=== PATIENT | male | born 1985 | race Caucasian/White ===

== ENCOUNTER → 2017-11-12 | Outpatient (CLI) | payer OTHER ==
[~2017-11-12] MED LIST: Norco 5-325 Ta1 EACH PO; PENVK500 PO
[2017-11-12 16:37] LABS: BASOPHILS ABSOLUTE AUTO 0.04 K/mm3 (0.00-0.23); BASOPHILS PERCENT AUTO 1 % (0-2); EOSINOPHILS ABSOLUTE AUTO 0.14 K/mm3 (0.00-0.68); EOSINOPHILS PERCENT AUTO 2 % (0-6); Hematocrit 45.2 % (37.0-53.0); IMMATURE GRAN ABSOLUTE AUTO 0.02 K/mm3 (0.00-0.10); IMMATURE GRAN PERCENT AUTO 0 % (0-1); LYMPHOCYTES ABSOLUTE AUTO 3.02 K/mm3 (0.84-5.20); LYMPHOCYTES PERCENT AUTO 34 % (21-46); MONOCYTES ABSOLUTE AUTO 0.55 K/mm3 (0.16-1.47); MONOCYTES PERCENT AUTO 6 % (4-13); Mean Corpuscular HGB 31.9 pg (26.0-34.0); Mean Corpuscular HGB Conc 35.4 g/dL (31.5-36.5); Mean Corpuscular Volume 90 fL (80-100); Mean Platelet Volume 11.8 fL (9.1-12.4); NEUTROPHILS ABSOLUTE AUTO 5.02 K/mm3 (1.96-9.15); NEUTROPHILS PERCENT AUTO 57 % (41-73); Platelet Count 243 K/mm3 (150-400); RDW Coefficient Variation 12.6 % (11.7-14.2); RDW Standard Deviation 40.8 fL (35.1-46.3); Red Blood Cell Count 5.02 M/mm3 (4.30-5.90); White Blood Cell Count 8.79 K/mm3 (4.00-11.30)
[2017-11-12 16:47] LABS: Alanine Aminotransfer (ALT/SGP 46 U/L (12-78); Albumin, Blood 4.6 g/dL (3.4-5.0); Albumin/Globulin Ratio 1.2 (0.8-1.8); Alk Phos 106 U/L (40-126); Anion Gap 8 mmol/L (6-16); Aspartate Aminotrans (AST/SGOT 24 U/L (12-37); Bilirubin, Total 0.2 mg/dL (0.1-1.0); Blood Urea Nitrogen 17 mg/dL (8-24); Bun/Creatinine Ratio 14.7 (12.0-20.0); CO2, Blood 28 mmol/L (21-32); Calcium, Blood 9.8 mg/dL (8.5-10.1); Chloride, Blood 104 mmol/L (98-108); Creatinine, Blood 1.16 mg/dL (0.60-1.20); Globulin, Blood 3.8 g/dL (2.2-4.0); Glomerular Filtration Rate >60 (60-); Glucose, Blood 96 mg/dL (70-99); Potassium, Blood 4.1 mmol/L (3.5-5.5); Sodium, Blood 140 mmol/L (136-145); Total Protein, Blood 8.4 g/dL (6.4-8.2)
== END | disposition home or self-care (01) ==
LOC: LAB EV 16:32
PROVIDERS: Physician Assistant Medical
DX: K62.5 Hemorrhage of anus and rectum (principal)
CPT/HCPCS: 80053; 85025

== ENCOUNTER 2019-02-14 12:07 | Emergency (ER) | payer OTHER ==
[~2019-02-14] VITALS: Ht 182.9 cm; Wt 92.1 kg
[2019-02-14] MEDS ORDERED: Cleocin HCl300 MG PO (12:35)
[2019-02-14] MEDS ORDERED: Norco 5-325 Ta1 EACH PO (12:35)
== END 2019-02-14 12:45 | disposition home or self-care (01) ==
LOC: ER 12:07
DX: K08.89 Other specified disorders of teeth and supporting structures (principal); Z91.030 Bee allergy status; F17.200 Nicotine dependence, unspecified, uncomplicated
CPT/HCPCS: 99282

== ENCOUNTER 2019-06-22 21:31 | Emergency (ER) | payer OTHER ==
[~2019-06-22] VITALS: Ht 182.9 cm; Wt 95.2 kg
[~2019-06-22 21:31] MED LIST changes: +Cleocin HCl300 MG PO
[2019-06-22 22:45] LABS: Source, Urine Clean Catch
[2019-06-22 22:50] LABS: Bilirubin, Urine Neg (Neg); Blood, Urine Neg (Neg); Glucose Qualitative, Urine Neg (Neg); Ketones, Urine Neg (Neg); Leukocyte Esterase, Urine Neg (Neg); Nitrite, Urine Neg (Neg); Protein, Urine Neg (Neg); Urobilinogen, Urine NORM (Normal)
[2019-06-22 22:54] LABS: Appearance, Urine Clear (Clear); Color, Urine Yellow (P-Yellow)
[2019-06-22] MEDS ORDERED: CYCL10 PO (23:17)
== END 2019-06-22 23:25 | disposition home or self-care (01) ==
LOC: ER 21:31
PROVIDERS: Physician Assistant
DX: M62.830 Muscle spasm of back (principal); F17.200 Nicotine dependence, unspecified, uncomplicated; Z91.030 Bee allergy status; Z88.0 Allergy status to penicillin
CPT/HCPCS: 81003; 96372; 99283-25; A9270; J1885

== ENCOUNTER 2019-09-26 08:32 | Inpatient (IN) | payer OTHER ==
[~2019-09-26] VITALS: Ht 182.9 cm; Wt 84.6 kg
[~2019-09-26 08:32] MED LIST changes: +CYCL10 PO
[2019-09-26 09:40] LABS: BASOPHILS ABSOLUTE AUTO 0.04 K/mm3 (0.00-0.23); BASOPHILS PERCENT AUTO 0 % (0-2); EOSINOPHILS ABSOLUTE AUTO 0.02 K/mm3 (0.00-0.68); EOSINOPHILS PERCENT AUTO 0 % (0-6); Hematocrit 49.6 % (37.0-53.0); Hemoglobin 16.7 g/dL (13.5-17.5); IMMATURE GRAN ABSOLUTE AUTO 0.04 K/mm3 (0.00-0.10); IMMATURE GRAN PERCENT AUTO 0 % (0-1); LYMPHOCYTES ABSOLUTE AUTO 2.23 K/mm3 (0.84-5.20); LYMPHOCYTES PERCENT AUTO 19 % (21-46); MONOCYTES ABSOLUTE AUTO 0.61 K/mm3 (0.16-1.47); MONOCYTES PERCENT AUTO 5 % (4-13); Mean Corpuscular HGB 30.8 pg (26.0-34.0); Mean Corpuscular HGB Conc 33.7 g/dL (31.5-36.5); Mean Corpuscular Volume 92 fL (80-100); Mean Platelet Volume 11.6 fL (9.1-12.4); NEUTROPHILS PERCENT AUTO 75 % (41-73); Platelet Count 281 K/mm3 (150-400); RDW Coefficient Variation 12.8 % (11.7-14.2); RDW Standard Deviation 42.5 fL (35.1-46.3); Red Blood Cell Count 5.42 M/mm3 (4.30-5.90); White Blood Cell Count 11.94 K/mm3 (4.00-11.30)
[2019-09-26 09:46] LABS: Ethanol (Alcohol), Blood, Med <3 mg/dL; Salicylate 3.5 mg/dL (2.8-20.0)
[2019-09-26 09:47] LABS: Alanine Aminotransfer (ALT/SGP 45 U/L (12-78); Albumin, Blood 4.8 g/dL (3.4-5.0); Albumin/Globulin Ratio 1.4 (0.8-1.8); Alk Phos 92 U/L (50-136); Anion Gap 9 mmol/L (6-16); Aspartate Aminotrans (AST/SGOT 26 U/L (12-37); Bilirubin, Total 0.4 mg/dL (0.1-1.0); Blood Urea Nitrogen 9 mg/dL (8-24); Bun/Creatinine Ratio 7.7 (12.0-20.0); CO2, Blood 19 mmol/L (21-32); Calcium, Blood 9.1 mg/dL (8.5-10.1); Chloride, Blood 110 mmol/L (98-108); Creatinine, Blood 1.17 mg/dL (0.60-1.20); Free Thyroxine 1.61 ng/dL (0.70-1.60); Globulin, Blood 3.5 g/dL (2.2-4.0); Glomerular Filtration Rate >60 (60-); Glucose, Blood 134 mg/dL (70-99); Potassium, Blood 3.9 mmol/L (3.5-5.5); Sodium, Blood 138 mmol/L (136-145); Total Protein, Blood 8.3 g/dL (6.4-8.2)
[2019-09-26 09:52] LABS: Acetaminophen, Random 115.3 ug/mL (10.0-30.0)
[2019-09-26 11:30] LABS: International Normalized Ratio 0.99; Prothrombin Time Results 10.6 Sec (9.7-11.5)
[2019-09-26 11:42] LABS: Base Excess Venous -7.5 mmol/L; Bicarbonate Venous 19.1 mmol/L (24.0-30.0); PO2 Venous 88.4 mmHg (38-42); pH Blood Venous 7.32 (7.34-7.37)
--- NOTE | 2019-09-26 14:00 | NUR ---
PT ARRIVED FROM ED TO ICU 3. PT IS A&OX4 FOLLOWING COMMANDS. N/V THAT PT WAS HAVING DOWN IN ED IS REPORTED TO BE IMPROVING, NO C/O ABD PAIN AT THIS TIME. PT IS SBA TRANSFERRING/AMBULATING. MONITOR SHOWS PT TO BE IN SINUS RHYTHM. VSS, SPO2>92% ON RA, LUNG SOUNDS ARE CLEAR. ACETYLCYSTEINE BAG #2 CONTINUED FROM ED. HIVES RASH FROM ZOFRAN ON LEFT ARM, NOTED TO BE CLEARING.
--- NOTE | 2019-09-26 14:59 | NUR ---
TALKED WITH VANESSA FROM [facility]. UPDATED ON CURRENT LAB RESULTS, EKG, VITALS. CONFIRMED ORDERED LABS/EKG PER RECOMMENDED GUIDELINES. [facility] WILL CALL BACK OUT FOR FOLLOW UP LAB RESULTS.
[2019-09-26 16:39] LABS: U Amphetamine Screen Not Detected; U Barbituate Screen Not Detected; U Benzodiazapine Screen Not Detected; U Buprenorphine Screen Not Detected; U Cannabinoids Screen Not Detected; U Cocaine Screen Not Detected; U Methadone Screen Not Detected; U Methamphetamine Screen Not Detected; U Opiates Screen Not Detected; U Oxycodone Screen Not Detected; U Phencyclidine Screen Not Detected; U Propoxyphene Screen Not Detected
[2019-09-26 17:28] LABS: Alanine Aminotransfer (ALT/SGP 52 U/L (12-78); Albumin, Blood 4.2 g/dL (3.4-5.0); Albumin/Globulin Ratio 1.2 (0.8-1.8); Alk Phos 85 U/L (50-136); Anion Gap 9 mmol/L (6-16); Aspartate Aminotrans (AST/SGOT 22 U/L (12-37); Bilirubin, Total 0.5 mg/dL (0.1-1.0); Blood Urea Nitrogen 11 mg/dL (8-24); Bun/Creatinine Ratio 10.3 (12.0-20.0); CO2, Blood 20 mmol/L (21-32); Chloride, Blood 111 mmol/L (98-108); Creatinine, Blood 1.07 mg/dL (0.60-1.20); Globulin, Blood 3.5 g/dL (2.2-4.0); Glomerular Filtration Rate >60 (60-); Glucose, Blood 130 mg/dL (70-99); Potassium, Blood 3.9 mmol/L (3.5-5.5); Sodium, Blood 140 mmol/L (136-145); Total Protein, Blood 7.7 g/dL (6.4-8.2)
[2019-09-26 17:36] LABS: Salicylate 2.2 mg/dL (2.8-20.0)
--- NOTE | 2019-09-26 18:21 | NUR ---
SHIFT SUMMARY PT HAS SLEPT OFF AND ON SINCE ARRIVAL TO UNIT AND HIS INTERACTION WITH STAFF HAS IMPROVED, WHERE HE'LL OCCASSIONALLY LAUGH. PT STILL DECLINING TO DISCUSS EVENTS/REASONS LEADING UP TO SUICIDE ATTEMPT. ACETYLCYSTEINE INFUSION CONTINUES AND PT IS NOW ON BAG #3 PER ORDERS. TYLENOL LEVEL REDRAW HAS IMPROVED. MONITOR SHOWS PT TO BE IN A SINUS RHYTHM RATES IN THE 70'S. REPEAT EKGS HAVE SHOWN IMPROVEMENT IN QRS, WITH MOST RECENT MEASUREMENT 108ms. VITALS REMAIN STABLE. PT HAS HAD NO MORE NAUSE/VOMITING SINCE ARRIVING FROM ER AND HAS TOLERATED A CLEAR LIQUID DIET. ROOM RECHECKED AND ANYTHING NOT NEEDED WAS REMOVED FOR SAFETY. PT REMAINS A 1:1 WITH SITTER FOR HIGH RISK SUICIDE.
--- NOTE | 2019-09-26 19:37 | NUR ---
ASSUMED CARE OF PT, REPORT RCV'D FROM DES MCDANI[facility]. PT ALERT AND ORIENTED SITTING UP IN BED. PT RESPONDS APPROPRIATELY TO QUESTIONS AND DENIES CURRENT SUICIDAL IDEATION. PT HAS FLAT AFFECT AND APPEARS WITHDRAWN BUT IS PLEASANT. PT DECLINES TO TALK ABOUT SITUATION SURROUNDING SUICIDE ATTEMPT. PT REPORTS MOM AND AUNT ARE EMOTIONAL SUPPORT FOR HIM, THEY BOTH LIVE IN [place]. PT HAS TALKED TO BOTH MOM AND AUNT THIS SHIFT AND SEEMS TO BE COMFORTED AND ENCOURAGED BY THEM. PT DENIES N/V PAIN OR NEEDS AT THIS TIME. PT ABLE TO AMBULATE INDEPENDENTLY TO TOILET WITH NO DIFFICULTY. HIGH RISK SUICIDE PRECAUTIONS IN PLACE. CURTAIN/WINDOW OPEN, CAMERA ON , 1:1 SITTER. SEE FULL SHIFT ASSESSMENT/
--- NOTE | 2019-09-26 22:49 | NUR ---
POISON CONTROL CALLED FOR UPDATE. RECOMMENDED RECHECK OF TYLENOL LEVEL, AST, ALT, AND INR AT 0600 TO DETERMINE IF ADDITIONAL ACEYTLYCYCTEINE GTT NEEDED.
--- NOTE | 2019-09-26 23:52 | NUR ---
MIDSHIFT ASSESSMENT PT REMAINS ALERT/ORIENTED, MORE INTERACTIVE WITH STAFF NIGHT PROCEEDS. PT HAS CONTINUED TO DENY NAUSEA OR ABDOMINAL PAIN BUT HAS HAD 3 EPISODES OF DIARRHEA. PT ABLE TO AMBULATE WITH INDEPENDENTLY WITH NO DIFFICULTY. ACETYLCYSTEINE CONTINUES TRANSFUSING @65 ML/HR, NS@ 100 ML/HR. HIGH RISK SUICIDE PRECAUTIONS IN PLACE. VSS. WILL CONTINUE TO MONITOR.
--- NOTE | 2019-09-27 05:29 | NUR ---
SHIFT SUMMARY NO ACUTE CHANGES OVERNIGHT. PT REMAINS ON ACETYLCYSTEINE @65.3 ML/HR UNTIL 0600 LABS AND RECOMMENDATION FROM POISON CONTROL. NS @ 100 ML/HR INFUSING. PT HAD 3 CONTINENT LOOSE/WATERY BOWEL MOVEMENTS AND 1050 URINARY OUTPUT. VITAL SIGNS REMAINED WNL OVERNIGHT. PLEASE SEE PREVIOUS NOTES FROM THIS SHIFT. WILL REPORT TO DAYSHIFT NURSE.
[2019-09-27 06:08] LABS: BASOPHILS ABSOLUTE AUTO 0.02 K/mm3 (0.00-0.23); BASOPHILS PERCENT AUTO 0 % (0-2); EOSINOPHILS ABSOLUTE AUTO 0.03 K/mm3 (0.00-0.68); EOSINOPHILS PERCENT AUTO 0 % (0-6); Hematocrit 45.5 % (37.0-53.0); Hemoglobin 15.2 g/dL (13.5-17.5); IMMATURE GRAN ABSOLUTE AUTO 0.02 K/mm3 (0.00-0.10); IMMATURE GRAN PERCENT AUTO 0 % (0-1); LYMPHOCYTES ABSOLUTE AUTO 1.46 K/mm3 (0.84-5.20); LYMPHOCYTES PERCENT AUTO 15 % (21-46); MONOCYTES ABSOLUTE AUTO 0.59 K/mm3 (0.16-1.47); MONOCYTES PERCENT AUTO 6 % (4-13); Mean Corpuscular HGB 30.9 pg (26.0-34.0); Mean Corpuscular HGB Conc 33.4 g/dL (31.5-36.5); Mean Corpuscular Volume 93 fL (80-100); Mean Platelet Volume 11.9 fL (9.1-12.4); NEUTROPHILS PERCENT AUTO 79 % (41-73); Platelet Count 194 K/mm3 (150-400); RDW Coefficient Variation 12.8 % (11.7-14.2); RDW Standard Deviation 43.5 fL (35.1-46.3); Red Blood Cell Count 4.92 M/mm3 (4.30-5.90); White Blood Cell Count 9.92 K/mm3 (4.00-11.30)
[2019-09-27 06:28] LABS: Acetaminophen, Random <2.0 ug/mL (10.0-30.0); Alanine Aminotransfer (ALT/SGP 113 U/L (12-78); Albumin, Blood 3.8 g/dL (3.4-5.0); Albumin/Globulin Ratio 1.4 (0.8-1.8); Alk Phos 81 U/L (50-136); Anion Gap 10 mmol/L (6-16); Aspartate Aminotrans (AST/SGOT 76 U/L (12-37); Bilirubin, Total 0.5 mg/dL (0.1-1.0); Blood Urea Nitrogen 8 mg/dL (8-24); CO2, Blood 18 mmol/L (21-32); Calcium, Blood 8.9 mg/dL (8.5-10.1); Chloride, Blood 113 mmol/L (98-108); Creatinine, Blood 0.99 mg/dL (0.60-1.20); Globulin, Blood 2.8 g/dL (2.2-4.0); Glomerular Filtration Rate >60 (60-); Glucose, Blood 112 mg/dL (70-99); Phosphorus, Blood 3.2 mg/dL (2.5-4.9); Potassium, Blood 3.9 mmol/L (3.5-5.5); Sodium, Blood 141 mmol/L (136-145); Total Protein, Blood 6.6 g/dL (6.4-8.2)
[2019-09-27 06:32] LABS: International Normalized Ratio 1.14; Prothrombin Time Results 12.1 Sec (9.7-11.5)
--- NOTE | 2019-09-27 07:43 | NUR ---
ASSUMED CARE OF PT FROM [facility]. PT IS RESTING IN BED, VSS, SINUS RHYTHM ON THE MONITOR. PT REPORTS A HEADACHE AND BILAT LOWER QUADRANT ABD PAIN. NOC SHIFT REPORTED A FEW EPISODES OF DIARRHEA. ACETYLCYSTEINE @65ML/HR CONTINUES TO INFUSE, ALMOST COMPLETE FOR CURRENT ORDERS. THIS MORNING PT EXPRESSED THAT PRIOR TO HOSPITALIZATION HE WAS HAVING MULTIPLE DISAGREEMENTS WITH A SIGNIFICANT OTHER AND WAS "KICKED OUT OF HIS APPARTMENT" HE EXPRESSES HIS ONLY PLACE TO GO IS TO STAY IN HIS TRUCK. PT ALSO EXPRESSED THE ONLY PEOPLE HE WANTS TO CONTACT HIM IS HIS MOTHER AND AUNT, BOTH WHO LIVE IN [place].
--- NOTE | 2019-09-27 08:13 | NUR ---
POISON CONTROL FOLLOWED UP, DUE TO PT'S INCREASING AST/ALT LEVELS, RECOMMENDS ADDITIONAL DOSING OF ACYTELCYSTEINE AND RECHECK LABS THIS EVENING.
--- NOTE | 2019-09-27 12:23 | NUR ---
Service Plan completed as much as pt was willing. He did not engage in the planning. He was unabe to agree that he would go the ED if he felt like OD again. He reports this is his first and only suicide attempt. His "ex-fiancee", that is his significant other asked him to leave the day of his OD. He went to work, then after work drove to a store and purchased Ibuprofen and Tylenol to OD. He took Ibuprofen 1st, and "went to bed in his truck". He woke up 10 hours later and took OD of Tylenol. He became sick and then drove himself to ED. He is from [place] and has been with SO for 18 years, beginnng in High School. They have 5 children age 2 to age 14. He reports 2 are his. He reports he felt "lost" before he took the OD. He is unable to identify any feelings or remorse for the OD. He is not future oriented, and ccould not engage in a plan for what to do next in his life. He is a "maybe" on seeing a counselor. He does not have a PCP and "sees no one". He displauys poor insight. He seems evasive on details of the relationship with ex that he lives with. He keeps referring to the prelationship problem is due to him texting another woman 4 years ago. He finally did say he had done the same before, and they broke up. He says they are together 9 years this time. This information was found out after many clarifying questions with him. His rellatioship with his mother is good, and he tried callling her prior to OD, but "she was asleep". Safety Plan completed as much as he was willing to engage. Raiza Dawson M.Ed., [facility]
--- NOTE | 2019-09-27 12:31 | NUR ---
PT REMAINS CALM AND COOPERATIVE IN BED. DR CHAVARRIA ADVANCED PT'S DIET TO A "LIGHT DIET". NO SPECIFIC ORDER AVAILABLE IN [facility], CONSULTED WITH [employer] SUPERVISOR AND RECOMMENDED PLACING FULL LIQUID AND SHE WOULD MODIFY TO ADD IN BRAT/LIGHT WEIGHT FOODS. NO EPISODES OF N/V/D SINCE BEGINNING OF SHIFT. VSS, SINUS RHYTHM ON THE MONITOR. ACETYLCYSTEINE & NS CONTINUE TO INFUSE. PT REPORTS IMPROVEMENT IN [place] AND ABD PAIN/CRAMPING. PO PRN PAIN MEDS NOW AVAILABLE. PT REPORTS NO CURRENT/RECENT THOUGHTS OF HARM TO SELF. PT REMAINS 1:1 HIGH RISK SUICIDE WATCH. ROOM CHECKED FOR SAFETY.
--- NOTE | 2019-09-27 15:30 | NUR ---
PT SEEN BY KIET MONTALVO, DOBBY LOOM WEAVER. SUICIDE PRECAUTIONS D/C'D. INFORMED PT ON CHANGE IN MONITORING STATUS. PT STATED UNDERSTANDING. PT REPORTS IMPROVEMENT IN ABD PAIN AND TOLERATED ADVANCING HIS DIET. MONITOR SHOWS PT TO BE IN SINUS RHYTHM, VITALS REMAIN STABLE. PT HAS BEEN ABLE TO TRANSFER/AMBULATE TO TOILET INDEPENDENTLY. CALL LIGHT IN REACH OF PT, PT DECLINES ANY CURRENT NEEDS.
--- NOTE | 2019-09-27 15:44 | NUR ---
Talked to RN and pt about a shower. RN needs pt to stay hooked to IV's until labs come down. offered pt a warm bucket of soap water to wash up. He refused, said he will take a shower once he is able to be saline locked.
[2019-09-27 17:20] LABS: International Normalized Ratio 1.15; Prothrombin Time Results 12.2 Sec (9.7-11.5)
[2019-09-27 17:27] LABS: Salicylate 2.2 mg/dL (2.8-20.0)
[2019-09-27 17:28] LABS: Alanine Aminotransfer (ALT/SGP 118 U/L (12-78); Albumin, Blood 3.5 g/dL (3.4-5.0); Albumin/Globulin Ratio 1.1 (0.8-1.8); Alk Phos 79 U/L (50-136); Anion Gap 4 mmol/L (6-16); Aspartate Aminotrans (AST/SGOT 57 U/L (12-37); Bilirubin, Total 0.5 mg/dL (0.1-1.0); Blood Urea Nitrogen 5 mg/dL (8-24); Bun/Creatinine Ratio 6.3 (12.0-20.0); CO2, Blood 23 mmol/L (21-32); Calcium, Blood 8.7 mg/dL (8.5-10.1); Chloride, Blood 113 mmol/L (98-108); Creatinine, Blood 0.79 mg/dL (0.60-1.20); Globulin, Blood 3.2 g/dL (2.2-4.0); Glomerular Filtration Rate >60 (60-); Glucose, Blood 124 mg/dL (70-99); Potassium, Blood 3.7 mmol/L (3.5-5.5); Sodium, Blood 140 mmol/L (136-145); Total Protein, Blood 6.7 g/dL (6.4-8.2)
[2019-09-27 17:34] LABS: Acetaminophen, Random <2.0 ug/mL (10.0-30.0)
--- NOTE | 2019-09-27 18:20 | NUR ---
SHIFT SUMMARY NO ACUTE CHANGES THIS SHIFT. POSION CONTROL SHOULD BE FOLLOWING UP AGAIN SHORTLY ON 1700 LABS. ACETYLECYSTEINE CONTINUES TO INFUSE AT 65.3 ML/HR. NO N/V/D TODAY, PT HAD BILAT LOWER QUAD PAIN THIS AM, IMPROVED THIS AFTERNOON AND HAD A SLIGHT INCREASE THIS EVENING, BUT PT DIDN'T REQUEST PAIN INTERVENTION. VITALS HAVE REMAINED STABLE, PT REMAINS IN SINUS RHYTHM ON THE MONITOR. THIS AFTERNOON, SHERI CLEARED PT FROM SUICIDE PRECAUTIONS. PT REPORTS THAT HIS MOM SHOULD BE ARRIVING FROM [place] TO VISIT BRIAN.
--- NOTE | 2019-09-27 18:39 | NUR ---
KARINA FROM POISON CONTROL RECOMMENDS TO FINISH CURRENT BAG OF ACETYLCYSTEINE AND STOP. IF LIVER FUNCTION TESTS START TO CLIMB TO CONSIDER RESTARTING INFUSION.
--- NOTE | 2019-09-27 20:30 | NUR ---
ASSUMED CARE OF PT, REPORT RCV'D FROM DES MCDANIEL. PT ALERT AND ORIENTED AND MUCH MORE INTERACTIVE THIS EVENING. PT C/O 03/17 PAIN IN "HEAD, SINUS, ABDOMEN, ARMS". PT TREATED WITH PAIN MEDICATION PER EMAR. PT'S 2-MD HOLD LIFTED THIS EVENING BY DR. CHAVARRIA. PT'S MOTHER CURRENTLY TRAVELLING TO [place] FROM [facility] TO BE A "SUPPORT PERSON" FOR PT. PT DENIES N/V/D. PT ABLE TO AMBULATE INDEPENDENTLY T/O ROOM WITH NO DIFFICULTY. VSS. PER POISON CONTROL, WILL RECHECK AST AND ALT AT 2300 TO DETERMINE IF ACETYLCYSTEINE SHOULD BE CONTINUED. ACETYLCYSTEINE INFUSING @ 65.3 ML/HR, NS @ 100 ML/HR. SEE FULL SHIFT ASSESSMENT.
[2019-09-27 23:29] LABS: Alanine Aminotransfer (ALT/SGP 100 U/L (12-78); Aspartate Aminotrans (AST/SGOT 40 U/L (12-37)
--- NOTE | 2019-09-28 00:36 | NUR ---
POISON CONTROL CALLED REGARDING 2300 AST/ALT LABS. LABS TRENDING DOWNWARD, RECOMMENDED D/C ACETYLCYSTEINE AT THIS TIME. POISON CONTROL SIGNING OFF PT'S CASE, CALL FOR FURTHER RECOMMENDATIONS IF ADDITIONAL CHANGE.
[2019-09-28 05:02] LABS: BASOPHILS ABSOLUTE AUTO 0.03 K/mm3 (0.00-0.23); BASOPHILS PERCENT AUTO 0 % (0-2); EOSINOPHILS ABSOLUTE AUTO 0.07 K/mm3 (0.00-0.68); EOSINOPHILS PERCENT AUTO 1 % (0-6); Hematocrit 41.4 % (37.0-53.0); Hemoglobin 14.1 g/dL (13.5-17.5); IMMATURE GRAN ABSOLUTE AUTO 0.02 K/mm3 (0.00-0.10); IMMATURE GRAN PERCENT AUTO 0 % (0-1); LYMPHOCYTES ABSOLUTE AUTO 2.33 K/mm3 (0.84-5.20); LYMPHOCYTES PERCENT AUTO 34 % (21-46); MONOCYTES ABSOLUTE AUTO 0.69 K/mm3 (0.16-1.47); MONOCYTES PERCENT AUTO 10 % (4-13); Mean Corpuscular HGB 31.1 pg (26.0-34.0); Mean Corpuscular HGB Conc 34.1 g/dL (31.5-36.5); Mean Corpuscular Volume 91 fL (80-100); Mean Platelet Volume 11.8 fL (9.1-12.4); NEUTROPHILS ABSOLUTE AUTO 3.74 K/mm3 (1.96-9.15); NEUTROPHILS PERCENT AUTO 54 % (41-73); Platelet Count 178 K/mm3 (150-400); RDW Coefficient Variation 12.6 % (11.7-14.2); RDW Standard Deviation 42.3 fL (35.1-46.3); Red Blood Cell Count 4.53 M/mm3 (4.30-5.90); White Blood Cell Count 6.88 K/mm3 (4.00-11.30)
[2019-09-28 05:15] LABS: International Normalized Ratio 1.03
[2019-09-28 05:23] LABS: Acetaminophen, Random <2.0 ug/mL (10.0-30.0); Salicylate 1.7 mg/dL (2.8-20.0)
[2019-09-28 05:24] LABS: Alanine Aminotransfer (ALT/SGP 97 U/L (12-78); Albumin, Blood 3.1 g/dL (3.4-5.0); Albumin/Globulin Ratio 1.1 (0.8-1.8); Alk Phos 66 U/L (50-136); Anion Gap 5 mmol/L (6-16); Aspartate Aminotrans (AST/SGOT 31 U/L (12-37); Bilirubin, Total 0.4 mg/dL (0.1-1.0); Blood Urea Nitrogen 4 mg/dL (8-24); Bun/Creatinine Ratio 5.1 (12.0-20.0); CO2, Blood 24 mmol/L (21-32); Calcium, Blood 8.7 mg/dL (8.5-10.1); Chloride, Blood 112 mmol/L (98-108); Creatinine, Blood 0.78 mg/dL (0.60-1.20); Globulin, Blood 2.7 g/dL (2.2-4.0); Glomerular Filtration Rate >60 (60-); Glucose, Blood 97 mg/dL (70-99); Potassium, Blood 3.6 mmol/L (3.5-5.5); Sodium, Blood 141 mmol/L (136-145); Total Protein, Blood 5.8 g/dL (6.4-8.2)
--- NOTE | 2019-09-28 05:55 | NUR ---
SHIFT SUMMARY NO ACUTE CHANGES OVERNIGHT. PT IS MUCH MORE INTERACTIVE WITH STAFF AND SEEMS TO BE IN BETTER SPIRITS. PT EXPRESSES DESIRE TO BE RELEASED TODAY HIS MOTHER AND SISTER ARE IN TOWN VISITING HIM AND ARE HERE TO HELP HIM "GET ON TRACK". ACETYLCYSTEINE GTT STOPPED @2330 PER POISON CONTROL. MORNING LABS WNL. PT TREATED FOR HEADACHE/SINUS/ABDOMINAL/BLE PAIN ONCE TIME. PT HAD NO INCIDENCE OF N/V/D, DENIES PAIN OR NEEDS AT THIS TIME. WILL REPORT TO DAYSHIFT NURSE.
[2019-09-28] MEDS ORDERED: Metoclopramide H5 MG PO (11:42)
[2019-09-28 12:46] LABS: Alanine Aminotransfer (ALT/SGP 97 U/L (12-78); Albumin, Blood 3.6 g/dL (3.4-5.0); Albumin/Globulin Ratio 1.1 (0.8-1.8); Alk Phos 78 U/L (50-136); Anion Gap 4 mmol/L (6-16); Aspartate Aminotrans (AST/SGOT 30 U/L (12-37); Bilirubin, Total 0.4 mg/dL (0.1-1.0); Blood Urea Nitrogen 5 mg/dL (8-24); Bun/Creatinine Ratio 6.3 (12.0-20.0); CO2, Blood 25 mmol/L (21-32); Calcium, Blood 8.9 mg/dL (8.5-10.1); Chloride, Blood 113 mmol/L (98-108); Creatinine, Blood 0.79 mg/dL (0.60-1.20); Globulin, Blood 3.4 g/dL (2.2-4.0); Glomerular Filtration Rate >60 (60-); Glucose, Blood 97 mg/dL (70-99); Potassium, Blood 3.7 mmol/L (3.5-5.5); Salicylate 2.1 mg/dL (2.8-20.0); Sodium, Blood 142 mmol/L (136-145)
[2019-09-28 12:48] LABS: Acetaminophen, Random <2.0 ug/mL (10.0-30.0)
--- NOTE | 2019-09-28 12:53 | NUR ---
DR. CHAVARRIA GAVE ORDERS FOR NOON LABS AND THEN DISCHARGE IF THEY ARE OK. DR. CHAAVRRIA NOTIFIED OF LAB RESULTS AND HE GAVE OK FOR PT TO DISCHARGE. PT GIVEN DISCHARGE INSTRUCTIONS REGARDING FOLLOW UP APPOINTMENTS AND MEDICATIONS. PT GIVEN NUMBERS FOR SUICIDE HOTLINE, [facility] 24 HR CRISIS LINE, AND SUICIDE HOTLINE WEBSITES. PT STATES HE PLANS TO GO STAY IN A [place] TONIGHT. PT HAS HIS CAR AND WILL DRIVE HIMSELF. PT DISCHARGED AT 1315. ALL BELONINGS SENT HOME WITH PT.
--- NOTE | 2019-09-28 13:55 | NUR ---
DR. CHAVARRIA CALLED REQUESTING FOLLOW UP BE MADE WITH [facility]. UNABLE TO GET THROUGH TO [facility] BY PHONE SO FACES[facility]ET FAXED TO THEM WITH REQUEST FOR FOLOW UP APPT IN 2-4 WEEKS.
== END 2019-09-28 13:20 | disposition home or self-care (01) | DRG 918 ==
LOC: ER 08:32 → PCU 10:55 → ICUE 10:55
PROVIDERS: Emergency Medicine; Internal Medicine; Nurse Practitioner Acute Care; ADMIT Family Medicine
DX: T39.392A Poisoning by other nonsteroidal anti-inflammatory drugs [NSAID], intentional self-harm, initial encounter (principal); T39.1X2A Poisoning by 4-Aminophenol derivatives, intentional self-harm, initial encounter; Y92.9 Unspecified place or not applicable; F17.210 Nicotine dependence, cigarettes, uncomplicated
CPT/HCPCS: 36415; 71045; 80053; 82803; 83735; 84100; 84439; 84443; 84450; 84460; 85025; 85610; 93005; 93010; 96361; 96365; 96366; 96375; 99285-25; G0480; J0132; J0780; J1200; J2405; J2765; J3010; J7030; J7060; J7070